=== PATIENT | female | born 1990 | race African-American/Black ===

== ENCOUNTER 2023-12-21 00:25 | Emergency (ER) | payer OTHER ==
[~2023-12-21] VITALS: Ht 165.1 cm; Wt 68.0 kg
[2023-12-21] MEDS ORDERED: HYDROCODONE-AC1 EAC1 PO (03:39)
== END 2023-12-21 03:56 | disposition home or self-care (01) ==
LOC: ED 00:25 → EDBD 00:43 → ED 00:43
DX: S82.52XA Displaced fracture of medial malleolus of left tibia, initial encounter for closed fracture (principal); S80.12XA Contusion of left lower leg, initial encounter; S40.022A Contusion of left upper arm, initial encounter; V49.9XXA Car occupant (driver) (passenger) injured in unspecified traffic accident, initial encounter; Y93.89 Activity, other specified; Y92.410 Unspecified street and highway as the place of occurrence of the external cause; Y99.8 Other external cause status